=== PATIENT | male | born 1985 | race Caucasian/White ===

== ENCOUNTER 2023-06-02 12:56 | Emergency (ER) | payer SELFPAY ==
[~2023-06-02] VITALS: Ht 157.5 cm; Wt 54.5 kg
[2023-06-02 13:35] VITALS: BP 132/79; TEMP 97.6
[2023-06-02] MEDS ORDERED: Lido/EPI/Tetrac Gel 3 ML SYRINGE TOP ONE (14:45)
[2023-06-02] MEDS ORDERED: Ibuprofen 400 MG TAB PO ONE (16:00)
[2023-06-02 16:10] VITALS: PULSE 70
== END 2023-06-02 16:13 | disposition home or self-care (01) ==
LOC: COL.ER 12:56
DX: S69.92XA Unspecified injury of left wrist, hand and finger(s), initial encounter (principal); Z23 Encounter for immunization; W31.89XA Contact with other specified machinery, initial encounter